=== PATIENT | female | born 1965 | race Hispanic/Latino ===

== ENCOUNTER 2022-06-11 10:31 | Emergency (ER) | payer OTHER, SELFPAY ==
--- NOTE | ~2022-06-11 | CT_ITS ---
EXAMINATION: CT IAC/mastoids BI w con DATE: 06/11/2022 14:27 INDICATION: One month of left-sided ear pain TECHNIQUE: High resolution computed tomography (CT) of the bilateral temporal bones/internal auditory canals and mastoids was performed with 100 mL Omnipaque-350 intravenous contrast. Additional sagitta l and coronal reconstructions were performed. Automated exposure control and iterative reconstruction technique were employed. The dose-length product was 318.59 mGy-cm. COMPARISON: None FINDINGS: Small right mastoid effusion. The right external auditory canal and middle ear cavities remain clear. There is haziness to the fat surrounding the more peripheral left external auditory canal with perip heral soft tissue swelling resulting in occlusion of the left external auditory canal. Large left swati mastoiditis fusion with complete opacification of the mastoid air cells and middle ear cavities. Bila teral ossicle chains appear intact. There is suggestion of osteolysis with dehiscence along the rim o f the anterior epitympanic recess. There is no evident overlying peripherally enhancing abscess along the overlying floor of the posterior medial left middle cranial fossa. No evident extracranial absce ss. Paranasal sinuses are clear. Changes of bilateral intraocular lens replacement. IMPRESSION: 1. Left otitis externa along with a left lateral mastoid effusion completely filling the left mastoid air cells and middle ear cavity. There appears to be some osteolysis with potential dehiscence of th e roof of the left anterior epitympanic recess. No evident overlying intracranial abscess. Reviewed, dictated and finalized at location [facility]. [employer] IMPRESSION: 1. Left otitis externa along with a left lateral mastoid effusion completely fi lling the left mastoid air cells and middle ear cavity. There appears to be robert e osteolysis with potential dehiscence of the roof of the left anterior epitymp anic recess. No evident overlying intracranial abscess.
[2022-06-11 11:12] VITALS: BP 178/74; PULSE 107; RESP 16; TEMP 36.5; O2SAT 100
--- NOTE | 2022-06-11 13:26 | ED.GENADULT ---
HPI - General Adult General Chief complaint: Ear Stated complaint: left ear pain Time Seen by Provider: 06/11/22 12:26 History of Present Illness HPI narrative: Patient is a 56-year-old female with history of insulin-dependent diabetes presenting with 1 month of left ear pain. Patient reports she has been taking polymyxin B, neomycin, hydrocortisone drops for 1 month without improvement. She reports pain now extending into her mandible. She denies fever. She denies chills. Patient denies chest pain or shortness of breath. Related Data Home Medications Medication Instructions Recorded Confirmed acetaminophen 300 mg-codeine 30 mg tablet 06/11/22 tablet amlodipine 5 mg tablet mg 06/11/22 06/11/22 atorvastatin 40 mg tablet mg 06/11/22 clotrimazole-betamethasone 1 applic topical 06/11/22 %-0.05 % topical cream gabapentin 400 mg capsule mg 06/11/22 insulin NPH isoph U-100 human 100 unit subcut 06/11/22 unit/mL subcutaneous suspension (Novolin N NPH U-100 Insulin isophane) insulin detemir U-100 100 unit/mL unit subcut 06/11/22 (3 mL) subcutaneous pen (Levemir FlexTouch U-100 Insulin) ofloxacin 0.3 % ear drops drp 06/11/22 pen needle, diabetic 31 gauge x 06/11/22 06/11/2206/22 (Comfort EZ Pen Axson) semaglutide 0.25 mg or 0.5 mg (2 mg subcut 06/11/22 mg/1.5 mL) subcutaneous pen injector (Ozempic) Allergies Allergy/AdvReac Type Severity Reaction Status Date / Time No Known Allergies Allergy Verified 06/11/22 14:05 Review of Systems Review of Systems: 10 point review of systems performed and negative except per HPI Exam Narrative: APPEARANCE: Tearful, appears in pain, nontoxic, resting in bed EYES: EOMI HEENT: Normocephalic, atraumatic, OMM, granulation tissue in left external auditory canal, mild tenderness palpation with manipulation of the left ear RESPIRATORY: No respiratory distress Clear to auscultation bilaterally with no rhonchi wheezing or rales. CARDIOVASCULAR: Tachycardic, regular rhythm Without murmurs rubs or gallops. ABDOMINAL: Soft, nontender, nondistended, no rebound or guarding MUSCULOSKELETAl: Moves all extremities. No clubbing, cyanosis or edema. NEURO: Awake and alert. Following commands, speech normal, no focal deficits SKIN:: Warm, dry. No rashes lesions or abrasions PSYCHIATRIC: Normal affect/mood, Course Vital Signs Vital signs: Vital Signs Temperature 97.7 F 06/11/22 11:12 Pulse Rate 107 H 06/11/22 11:12 Respiratory Rate 16 06/11/22 11:12 Blood Pressure 178/74 H 06/11/22 11:12 Pulse Oximetry 100 06/11/22 11:12 Temperature 97.7 F 06/11/22 18:30 Pulse Rate 78 06/11/22 21:20 Respiratory Rate 16 06/11/22 21:20 Blood Pressure 138/86 06/11/22 21:20 Pulse Oximetry 98 06/11/22 21:20 Transfer Transfer rationale: Patient with acute otitis externa versus mastoiditis. Failing outpatient treatment. Requires ENT evaluation and potentially infectious disease consult neither available at this time. Patient still in her hospital with an service consultant available which is anticipated to be 06/14 (3 days from now) then consider consult Accepting physician: Dr. Alvarado - [facility] hospitalist Medical Decision Making MDM Narrative Medical decision making narrative: Well appearing, non-toxic, hemodynamically stable. Patient is a insulin-dependent diabetic with outpatient treatment failure over the past month with worsening symptoms. Mild granulation tissue on the left external auditory canal is only significant finding. We will screen with inflammatory markers and CT. ESR are significantly elevated CT scan concerning for malignant otitis externa versus mastoiditis. initiated piperacillin-tazobactam. Contacted [facility] for transfer. ENT Dr. Case reports unclear if this will be surgical in nature but agrees patient would benefit from ENT consultation as well as infectious disease consultation. I have neither available at my fa
[2022-06-11] MEDS: KETOROLAC 15 MG/ML VIAL (*BKC) IV PUSH (13:37)
[2022-06-11] MEDS: LACTATED RINGERS 1,000 ML 999 ML IV CONT (13:37)
[2022-06-11 13:41] LABS: Basophils Absolute Auto 0.1 K/mm3 (0.0-0.1); Basophils Percent Auto 0.8 % (0.2-1.2); Eosinophils Absolute Auto 0.2 K/mm3 (0-0.3); Eosinophils Percent Auto 1.7 % (0-4.4); Hematocrit 33.8 % (37.0-47.0); Hemoglobin 10.8 g/dL (12.0-15.0); Immature Granulocyte Absolute 0.04 K/mm3 (0.00-0.031); Immature Granulocyte Percent A 0.3 % (0-0.5); Lymphocytes Absolute Auto 1.83 K/mm3 (0.9-3.2); Lymphocytes Percent Auto 15.3 % (18.3-44.2); Mean Corpuscular Hemoglobin 26.9 pg (26-34); Mean Corpuscular Volume 84.1 fl (80-100); Mean Platelet Volume 8.7 fl (7.4-10.4); Monocytes Absolute Auto 0.5 K/mm3 (0.1-0.6); Monocytes Percent Auto 4.2 % (2.6-8.5); Neutrophils Absolute Auto 9.3 K/mm3 (1.3-6.7); Neutrophils Percent Auto 77.7 % (45.5-73.1); Platelet Count Result 517 k/mm3 (150-375); Red Blood Count 4.02 M/mm3 (4.2-5.4); Red Cell Distribution Width 14.8 % (11.5-14.5)
[2022-06-11 13:51] LABS: Prothrombin Time 12.7 Seconds (11.1-14.7)
[2022-06-11 13:55] LABS: Alanine Aminotransferase 16 U/L (6-35); Albumin Level 4.5 g/dL (3.5-5.1); Alkaline Phosphatase 155 U/L (38-126); Anion Gap 8 mmol/L (8-16); Aspartate Amino Transferase 30 U/L (14-36); Bilirubin,Total 0.3 mg/dL (0.2-1.3); Blood Urea Nitrogen 24 mg/dL (7-17); CRP 1.7 mg/dL (<1.0); Calcium 9.3 mg/dL (8.4-10.2); Carbon Dioxide 24 mmol/L (22-30); Chloride 103 mmol/L (98-107); Estimated CRCL calculation 80 ml/min; Estimated Glomerular Filt Rate > 60; Glucose 146 mg/dL (65-110); Potassium 4.1 mmol/L (3.4-5.0); Sodium 135 mmol/L (137-145)
[2022-06-11] MEDS: CIPROFLOXACIN HCL 0.3% OP SOLN 2.5 ML BTL 3 DROP LEFT EAR (14:13)
[2022-06-11 14:21] LABS: Erythrocyte Sedimentation Rate > 140 mm/hr (0-20)
[2022-06-11 14:30] VITALS: BP 140/79; PULSE 70; RESP 16; O2SAT 100
[2022-06-11] MEDS: PIPERACILLIN/TAZOBACTAM SOD 4.5 GM in SODIUM CHLORIDE 0.9% IV 100 ML 200 ML IVPB ×2 (15:49→21:53)
--- NOTE | 2022-06-11 17:25 | PC.NURSE ---
faxed pt. facesheet to [facility]
[2022-06-11 18:30] VITALS: BP 140/79; PULSE 80; RESP 16; TEMP 36.5; O2SAT 100
[2022-06-11 21:20] VITALS: BP 138/86; PULSE 78; RESP 16; O2SAT 98
[2022-06-11] MEDS: IBUPROFEN 400 MG TABLET 800 MG PO (21:52)
[2022-06-11 23:16] LABS: Glucose Point of Care 158 mg/dl (65-105)
[2022-06-11 23:42] VITALS: BP 164/71; PULSE 100; RESP 16; O2SAT 99
[2022-06-12 04:14] VITALS: BP 156/77; PULSE 91; RESP 16; O2SAT 99
[2022-06-12] MEDS: HYDROmorphone HCL INJ (*CRX) 1 MG/ML SYR IV PUSH (04:17)
== END 2022-06-12 05:00 | disposition short-term general hospital (02) ==
PROVIDERS: Emergency Provider Emergency Medicine
DX: H60.22 Malignant otitis externa, left ear (principal); E11.9 Type 2 diabetes mellitus without complications; Z79.4 Long term (current) use of insulin
CPT/HCPCS: 36415; 70481; 80053; 82948; 85025; 85610; 85652; 86140; 96361; 96365; 96366; 96374; 96375; 99285; A9270; J1170; J1885; J2543; J7120; Q9967